=== PATIENT | female | born 1970 | race Caucasian/White ===

== ENCOUNTER 2016-11-19 12:06 | Observation (INO) ==
[2016-11-19] MEDS ORDERED: *HR* Morphine 2 MG/ML SYRINGE IVP ONE (12:14)
[2016-11-19] MEDS ORDERED: Ondansetron 4 MG/2 ML VIAL IVP ONE (12:14)
--- NOTE | 2016-11-19 12:17 | Emergency Department Note ---
Disposition Clinical Impression: Anemia Qualifiers: Iron deficiency anemia type: chronic blood loss Chest pain Qualifiers: Chest pain type: precordial pain Qualified Code(s): R07.2 - Precordial pain Disposition: Admitted As Inpatient Condition: Good Referrals: Pearl Pereira CNP [Primary Care Provider] - Forms: ED Satisfaction Letter Time of Disposition: 16:57 Chest Pain HPI - General Chief Complaint: ED Chest Pain Stated Complaint: Chest Pain Time Seen by Provider: 11/19/16 12:10 Source: patient Mode of arrival: EMS Limitations: no limitations Vital Signs Reviewed: Yes Nursing Notes Reviewed: Yes - History of Present Illness HPI Narrative: 46-year-old female with history of coronary artery disease, stents, woke up around 8:30 AM with substernal sharp chest discomfort radiating into her neck. No nausea or diaphoresis. No shortness of breath. She took 4 nitroglycerin of her own which did not seem to help much. She was given 4 baby aspirin by the life squad. Her pain was a level IX at home, and is a level VII here. She states the pain is similar to her previous cardiac chest pain. Pt complaint: chest pain Onset (ago): hour(s) (3-/) Time: 08:30 Duration: constant Onset: during rest Pain Location: substernal Severity scale (1-10): 7 Quality: sharp Pain Radiation: neck Improves with: nothing Worsens with: nothing Context: other (History of coronary artery disease) Associated symptoms: Denies: dyspnea, fever, cough Treatments prior to arrival chest pain: aspirin, nitroglycerin - Related Data Home Medications Medication Instructions Recorded Confirmed Albuterol Sulfate [Albuterol 2 puff IH Q6H PRN 09/06/16 11/13/16 Inhaler] Atorvastatin [Lipitor] 80 mg PO HS 09/06/16 11/13/16 Buspirone HCl [Buspar] 15 mg PO BID 09/06/16 11/13/16 Cetirizine HCl 10 mg PO DAILY 09/06/16 11/13/16 Clopidogrel [Plavix] 75 mg PO DAILY 09/06/16 11/13/16 FLUoxetine HCl [Prozac] 20 mg PO DAILY 09/06/16 11/13/16 Fluticasone Propionate Nasal 50 mcg NS DAILY 09/06/16 11/13/16 [Flonase] Losartan Potassium [Cozaar] 50 mg PO DAILY 09/06/16 11/13/16 Metoprolol [Lopressor] 25 mg PO DAILY 09/06/16 11/13/16 Albuterol Neb [AccuNeb] 0.63 mg IH Q6H PRN 10/07/16 11/13/16 Fenofibrate Nanocrystallized 145 mg PO DAILY 10/07/16 11/13/16 [Tricor] Nicotine Patch [Nicoderm] 21 mg TD DAILY 10/07/16 11/13/16 Nitroglycerin [Nitrostat] 0.4 mg PO Q5M PRN 10/07/16 11/13/16 Gabapentin [Neurontin] 300 mg PO TID 11/13/16 11/13/16 Isosorbide MONOnitrate [Isosorbide 10 mg PO DAILY 11/13/16 11/13/16 Mononitrate] Mometasone/Formoterol [Dulera 100 13 gm IH DAILY 11/13/16 11/13/16 Mcg/5 Mcg Inhaler] Previous Rx's Medication Instructions Recorded Ergocalciferol (VITAMIN D2) 50,000 unit PO QWEEK #7 capsule 09/12/16 [Vitamin D2] Lidocaine Patch [Lidoderm 5% patch] 1 each TP DAILY #7 patch 09/12/16 Dicyclomine [Bentyl] 20 mg PO QID PRN #30 capsule 11/13/16 Ondansetron ODT [Zofran ODT] 4 mg SL Q6HR PRN #8 tab.rapdis 11/13/16 Allergies Allergy/AdvReac Type Severity Reaction Status Date / Time Penicillins AdvReac Hives Verified 11/13/16 13:01 propoxyphene AdvReac Vomiting Verified 11/13/16 13:01 [From Caio] All systems ED: reviewed and negative except as stated. Constitutional: Denies: fever, chills ENT ED: Denies: ear pain, throat pain Cardiovascular: Reports: chest pain. Denies: palpitations Respiratory: Denies: cough, dyspnea Gastrointestinal: Denies: abdominal pain, nausea, vomiting Genitourinary: Denies: urgency, dysuria, frequency Musculoskeletal: Reports: neck pain. Denies: back pain Integumentary: Denies: rash Chest Pain PMH - Past Medical History Medical history: Reports: COPD, coronary artery disease, GI bleed, hyperlipidemia, hypertension, myocardial infarction Surgical history: Reports: angioplasty/stent, SERGIO/BSO, other Psychiatric history: Reports: anxiety [employer] history: Reports: bilateral tubal ligation - Social History Smoking Status: Current every day smoker Alcohol use: Reports: occasionally Drug use: Reports: none Physical Exam - General Limitations: no limitations General appearance: alert, in no apparent distress - Head Head exam: atraumatic, normocephalic - Eye Eye exam: Present: PERRL, EOMI. Absent: scleral icterus, conjunctival injection - ENT ENT exam: normal oropharynx, mucous membranes moist, TM's normal bilaterally - Neck Neck exam: Present: normal inspection, full ROM, trachea midline. Absent: lymphadenopathy - Respiratory Respiratory exam: Present: normal lung sounds bilaterally. Absent: respiratory distress, wheezes - Cardiovascular Cardiovascular exam: Present: regular rate, normal rhythm, normal heart sounds - Abdominal Exam Abdominal exam: Present: soft, Non-Tender, normal bowel sounds. Absent: organomegaly, mass - Extremities Exam Extremities exam: Present: normal inspection, full ROM, normal capillary refill. Absent: tenderness, pedal edema, calf tenderness - Back Exam Back exam: Present: normal inspection - Neurological Exam Neurological exam: Present: alert, oriented X3. Absent: motor sensory deficit - Psychiatric Psychiatric exam: Present: normal affect, normal mood - Skin Skin exam: Present: warm, dry, intact, normal color. Absent: cyanosis, diaphoresis Course - Reevaluation(s) Reevaluation #1: Complete relief of chest discomfort with GI treatment. Time: 14:00 Reevaluation #2: Case discussed with Dr. Medley. He will accept patient for observation admission to transfuse and monitor. Time: 16:53 Vital Signs Temperature 98.4 F 11/19/16 12:07 Pulse Rate 100 11/19/16 12:07 Respiratory Rate 20 11/19/16 12:07 Blood Pressure 155/77 11/19/16 12:07 O2 Sat by Pulse Oximetry 93 11/19/16 12:07 Temperature 98.3 F 11/19/16 14:24 Pulse Rate 96 11/19/16 16:39 Respiratory Rate 20 11/19/16 16:39 Blood Pressure 167/92 11/19/16 16:39 O2 Sat by Pulse Oximetry 93 11/19/16 15:40 Oxygen Delivery Oxygen Delivery Nasal Cannula Chest Pain - [facility] Narrative Medical decision making narrative: Differential includes but is not limited to GERD, esophageal spasm, chest wall pain, angina, myocardial infarction, pulmonary embolus, aortic dissection Etiology of her chest pain is unclear, it is certainly atypical for cardiac pain , and was almost completely relieved by GI cocktail and Pepcid. She is not actively bleeding, her stool is brown and Hemoccult negative. Her hemoglobin is 7.8, with her cardiac issues she needs to be transfused. I have ordered 2 units of packed cells. I discussed the case with Dr. Medley.We are going to put her in an observation bed here and transfuse her, monitor, and repeat her cardiac enzymes. - Lab Data Lab results reviewed: Yes I reviewed the patient's lab results. Result diagrams: 11/19/16 12:29 11/19/16 12:29 Lab Results 11/19/16 11/19/16 11/19/16 Range/Units 12:29 12:29 12:29 WBC 8.4 (4.3-11.1) K/mcL RBC 2.98 L (3.82-4.97) M/mcL Hgb 7.8 L (11.5-15.4) g/dL Hct 26.7 L (35.3-44.9) % MCV 89.6 (83.0-100.0) fL MCH 26.2 L (28.0-33.3) pg MCHC 29.2 L (31.6-35.5) g/dL RDW 19.9 H (11.5-14.5) % Plt Count 206 (140-400) K/mcL MPV 9.1 L (9.4-12.4) fL Immature Gran % 0.6 (0-4) % Seg Neutrophils % 71.1 % Lymphocytes % 15.9 % Monocytes % 9.7 % Eosinophils % 2.2 % Basophils % 0.5 % Neutrophils # 6.0 (1.6-8.9) K/mcL Lymphocytes # 1.3 (0.6-4.6) K/mcL Monocytes # 0.8 (0.0-1.3) K/mcL Eosinophils # 0.2 (0.0-0.6) K/mcL Basophils # 0.0 (0.0-0.2) K/mcL Nucleated RBCs/100 WBC 1.0 H (0) /100 WBC D-Dimer 1284 H (0-500) ng/mLFEU Sodium 137 (136-145) mEq/L Potassium 4.5 (3.5-4.5) mEq/L Chloride 102 (98-109) mEq/L Carbon Dioxide 24 (19-29) mEq/L BUN 16 (7-20) mg/dL Creatinine 0.85 (0.57-1.11) mg/dL Est GFR ( Amer) > 60 (> 60) Est GFR (Non-Af Amer) > 60 (> 60) BUN/Creatinine Ratio 19 (6-26) Glucose 126 H (70-99) mg/dL Calculated Osmolality 287 (280-300) Calcium 8.8 (8.6-10.8) mg/dL Total Bilirubin 0.4 (0.2-1.2) mg/dL AST 38 H (5-34) Units/L ALT 51 (0-55) Units/L Alkaline Phosphatase 64 (38-126) Units/L Troponin I (0-0.03) ng/mL B-Natriuretic Peptide (0-100) pg/mL Serum Total Protein 7.3 (6.0-8.3) g/dL Albumin 3.2 L (3.5-5.0) g/dL Globulin 4.1 H (2.4-3.5) g/dL Albumin/Globulin Ratio 0.8 L (1.1-2.2) Stool Occult Blood (Negative) Blood Type Antibody Screen Crossmatch 11/19/16 11/19/16 11/19/16 Range/Units 12:29 12:29 14:52 WBC (4.3-11.1) K/mcL RBC (3.82-4.97) M/mcL Hgb (11.5-15.4) g/dL Hct (35.3-44.9) % MCV (83.0-100.0) fL MCH (28.0-33.3) pg MCHC (31.6-35.5) g/dL RDW (11.5-14.5) % Plt Count (140-400) K/mcL MPV (9.4-12.4) fL Immature Gran % (0-4) % Seg Neutrophils % % Lymphocytes % % Monocytes % % Eosinophils % % Basophils % % Neutrophils # (1.6-8.9) K/mcL Lymphocytes # (0.6-4.6) K/mcL Monocytes # (0.0-1.3) K/mcL Eosinophils # (0.0-0.6) K/mcL Basophils # (0.0-0.2) K/mcL Nucleated RBCs/100 WBC (0) /100 WBC D-Dimer (0-500) ng/mLFEU Sodium (136-145) mEq/L Potassium (3.5-4.5) mEq/L Chloride (98-109) mEq/L Carbon Dioxide (19-29) mEq/L BUN (7-20) mg/dL Creatinine (0.57-1.11) mg/dL Est GFR ( Amer) (> 60) Est GFR (Non-Af Amer) (> 60) BUN/Creatinine Ratio (6-26) Glucose (70-99) mg/dL Calculated Osmolality (280-300) Calcium (8.6-10.8) mg/dL Total Bilirubin (0.2-1.2) mg/dL AST (5-34) Units/L ALT (0-55) Units/L Alkaline Phosphatase (38-126) Units/L Troponin I 0.00 0.02 (0-0.03) ng/mL B-Natriuretic Peptide 536 H (0-100) pg/mL Serum Total Protein (6.0-8.3) g/dL Albumin (3.5-5.0) g/dL Globulin (2.4-3.5) g/dL Albumin/Globulin Ratio (1.1-2.2) Stool Occult Blood (Negative) Blood Type Antibody Screen Crossmatch 11/19/16 11/19/16 Range/Units 15:45 15:55 WBC (4.3-11.1) K/mcL RBC (3.82-4.97) M/mcL Hgb (11.5-15.4) g/dL Hct (35.3-44.9) % MCV (83.0-100.0) fL MCH (28.0-33.3) pg MCHC (31.6-35.5) g/dL RDW (11.5-14.5) % Plt Count (140-400) K/mcL MPV (9.4-12.4) fL Immature Gran % (0-4) % Seg Neutrophils % % Lymphocytes % % Monocytes % % Eosinophils % % Basophils % % Neutrophils # (1.6-8.9) K/mcL Lymphocytes # (0.6-4.6) K/mcL Monocytes # (0.0-1.3) K/mcL Eosinophils # (0.0-0.6) K/mcL Basophils # (0.0-0.2) K/mcL Nucleated RBCs/100 WBC (0) /100 WBC D-Dimer (0-500) ng/mLFEU Sodium (136-145) mEq/L Potassium (3.5-4.5) mEq/L Chloride (98-109) mEq/L Carbon Dioxide (19-29) mEq/L BUN (7-20) mg/dL Creatinine (0.57-1.11) mg/dL Est GFR ( Amer) (> 60) Est GFR (Non-Af Amer) (> 60) BUN/Creatinine Ratio (6-26) Glucose (70-99) mg/dL Calculated Osmolality (280-300) Calcium (8.6-10.8) mg/dL Total Bilirubin (0.2-1.2) mg/dL AST (5-34) Units/L ALT (0-55) Units/L Alkaline Phosphatase (38-126) Units/L Troponin I (0-0.03) ng/mL B-Natriuretic Peptide (0-100) pg/mL Serum Total Protein (6.0-8.3) g/dL Albumin (3.5-5.0) g/dL Globulin (2.4-3.5) g/dL Albumin/Globulin Ratio (1.1-2.2) Stool Occult Blood Negative (Negative) Blood Type A POSITIVE Antibody Screen NEGATIVE Crossmatch See Detail - Radiology Data Radiology results reviewed: Yes I reviewed the patient's radiology results. - EKG Data EKG attestation: Yes I reviewed and interpreted this EKG. EKG results narrative: Sinus rhythm, rate of 90, left atrial enlargement, age indeterminate anterior infarct, nonspecific ST-T changes. Rhythm strip shows a sinus rhythm with a rate of 90, NE interval 181 ms, QS 101 ms with no other ectopy as interpreted by me. This is not significantly changed from an EKG dated . EKG #2: Sinus rhythm, rate of 86, nonspecific ST-T changes. Rhythm strip shows sinus rhythm with a rate of 86, NE interval 186 ms, QRS of 96 ms with no other ectopy as interpreted by me. Unchanged from her previous EKG.
[2016-11-19 12:36] LABS: Basophils % 0.5 %; Eosinophils # 0.2 K/mcL (0.0-0.6); Eosinophils % 2.2 %; Hematocrit 26.7 % (35.3-44.9); Hemoglobin 7.8 g/dL (11.5-15.4); Immature Granulocytes % 0.6 % (0-4); Lymphocytes # 1.3 K/mcL (0.6-4.6); Lymphocytes % 15.9 %; Mean Corpuscular HGB Conc 29.2 g/dL (31.6-35.5); Mean Corpuscular Hemoglobin 26.2 pg (28.0-33.3); Mean Corpuscular Volume 89.6 fL (83.0-100.0); Mean Platelet Volume 9.1 fL (9.4-12.4); Monocytes # 0.8 K/mcL (0.0-1.3); Monocytes % 9.7 %; Platelet Count 206 K/mcL (140-400); Red Blood Count 2.98 M/mcL (3.82-4.97); Red Cell Distribution Width 19.9 % (11.5-14.5); Segmented Neutrophils % 71.1 %
[2016-11-19 12:53] LABS: Alanine Aminotransferase 51 Units/L (0-55); Albumin 3.2 g/dL (3.5-5.0); Albumin/Globulin Ratio 0.8 (1.1-2.2); Alkaline Phosphatase 64 Units/L (38-126); Aspartate Amino Transferase 38 Units/L (5-34); BUN/Creatinine Ratio 19 (6-26); Bilirubin,Total 0.4 mg/dL (0.2-1.2); Blood Urea Nitrogen 16 mg/dL (7-20); Calcium 8.8 mg/dL (8.6-10.8); Carbon Dioxide 24 mEq/L (19-29); Chloride 102 mEq/L (98-109); Globulin 4.1 g/dL (2.4-3.5); Glucose 126 mg/dL (70-99); Osmolality,Calculated 287 (280-300); Potassium 4.5 mEq/L (3.5-4.5); Sodium 137 mEq/L (136-145); Total Protein 7.3 g/dL (6.0-8.3); eGFR For African Americans > 60 (> 60); eGFR For Non-African Americans > 60 (> 60)
[2016-11-19] MEDS ORDERED: GI Cocktail 40 ML EACH PO ONE (13:17)
[2016-11-19] MEDS ORDERED: Famotidine 20 MG TABLET PO ONE (13:17)
[2016-11-19] MEDS ORDERED: *HR* OxyCODONE/APAP 5/325 TABLET PO ONE (17:44)
--- NOTE | 2016-11-19 18:13 | Electrocardiograph Report ---
[address] [place], [place] [address] Test Date: 2016-11-19 Pat Name: Anne Cosby Department: [id number] Room: [facility] Gender: F Medical Assistant Prn: Velasquez : 1970 Requested By: Chemo Clay Order Number: [id number] Reading MD: Layla Ortega Measurements Intervals [place] Rate: 90 P: 63 SD: 181 QRS: 5 QRSD: 101 T: 46 QT: 367 QTc: 415 Interpretive Statements SINUS RHYTHM POSSIBLE LEFT ATRIAL ENLARGEMENT POSSIBLE ANTERIOR MYOCARDIAL INFARCTION, OF INDETERMINATE AGE Electronically Signed On 11-19-2016 18:11:45 EDT by Layla Ortega
[2016-11-19] MEDS ORDERED: 0.9 % Sodium Chloride 1,000 ML IVC SCH (18:17)
[2016-11-19] MEDS ORDERED: Naloxone 0.4 MG/ML INJ IVP PRN (18:17)
[2016-11-19] MEDS ORDERED: Ondansetron ODT 4 MG TAB.RAPDIS SL PRN (18:17)
[2016-11-19] MEDS ORDERED: Nitroglycerin 0.4 MG TAB.SUBL SL PRN (18:17)
[2016-11-19] MEDS ORDERED: Albuterol Neb 0.63 MG/3 ML VIAL IH PRN (18:17)
[2016-11-19] MEDS ORDERED: 0.9 % Sodium Chloride 250 ML ONE (18:31)
[2016-11-19] MEDS ORDERED: *HR* Metoprolol 5 MG/5 ML VIAL IVP ONE ×3 (20:01→22:36)
[2016-11-19] MEDS ORDERED: *HR* Morphine 2 MG/ML SYRINGE IVP PRN (20:02)
[2016-11-19] MEDS ORDERED: Gabapentin 300 MG CAPSULE PO SCH (21:00)
[2016-11-19] MEDS ORDERED: tiZANidine 4 MG TABLET PO SCH (21:00)
[2016-11-19] MEDS ORDERED: *HR* HYDROcodone/Acet 5/325 mg TABLET PO PRN (22:02)
[2016-11-19] MEDS ORDERED: *HR* Morphine 2 MG/ML SYRINGE IVP STA (22:25)
[2016-11-19 23:50] VITALS: BP 135/86
--- NOTE | 2016-11-20 00:52 | Internal Med History&Physical ---
Date of Encounter: 11/20/16 Time of Encounter: 11:55 Assessment and Plan (1) Chest pain Current visit: Yes Status: Acute Repeat cardiac enzymes were ordered through emergency room. Qualifiers: Chest pain type: precordial pain Qualified Code(s): R07.2 - Precordial pain (2) Anemia Current visit: Yes Status: Acute She was ordered transfusion of PRBC through the emergency room. Qualifiers: Anemia type: unspecified type Qualified Code(s): D64.9 - Anemia, unspecified (3) HTN (hypertension) Current visit: No Status: Chronic Lopressor and Cozaar will be continued as at home. Qualifiers: Hypertension type: essential hypertension Qualified Code(s): I10 - Essential (primary) hypertension Internal Medicine - H&P: HPI Chief complaint: chest pain Admitted From: Home Plans for Post Hospital Care: Home History of present illness: Ms. Cosby is a 46 year old female who came to emergency room stating she had been awakened at 8:30 AM with discomfort in her chest. She describes it as epigastric discomfort that felt similar to previous pains when she has had myocardial infarctions in 2008 and 2014. She had 3 stents placed after the first ME and another stent placed after the second ME. She states she took 4 nitroglycerin pills at home prior to coming to the hospital with minimal relief. She has not had repeat heart cath since the second ME. She was seen by her [facility] tax economist approximately 7-10 days ago who told her he would consider doing another heart catheter in the near future. She denies heart failure DVT or pulmonary embolus. She has a history of hypertension. Past Med Surg Social Fam HX - Past Medical History Medical history: COPD, coronary artery disease, GI bleed, hyperlipidemia, hypertension, myocardial infarction Psychiatric history: anxiety - Past Surgical History Surgical History: angioplasty/stent, SERGIO/BSO, other - Social History Smoking Status: Current every day smoker Packs per day: .25 Smokeless Tobacco Status: Yes Alcohol use: occasionally Drug use: none - Family History Mother Adopted: Yes Internal Medicine - H&P: Meds Albuterol Sulfate [Albuterol Inhaler] 2 puff IH Q6H PRN 09/06/16 [History] Atorvastatin [Lipitor] 80 mg PO HS 09/06/16 [History] Buspirone HCl [Buspar] 15 mg PO BID 09/06/16 [History] Cetirizine HCl 10 mg PO DAILY 09/06/16 [History] Clopidogrel [Plavix] 75 mg PO DAILY 09/06/16 [History] FLUoxetine HCl [Prozac] 20 mg PO DAILY 09/06/16 [History] Fluticasone Propionate Nasal [Flonase] 50 mcg NS DAILY 09/06/16 [History] Losartan Potassium [Cozaar] 50 mg PO DAILY 09/06/16 [History] Metoprolol [Lopressor] 25 mg PO DAILY 09/06/16 [History] Ergocalciferol (VITAMIN D2) [Vitamin D2] 50,000 unit PO QWEEK #7 capsule [Rx] Lidocaine Patch [Lidoderm 5% patch] 1 each TP DAILY #7 patch 09/12/16 [Rx] Albuterol Neb [AccuNeb] 0.63 mg IH Q6H PRN 10/07/16 [History] Fenofibrate Nanocrystallized [Tricor] 145 mg PO DAILY 10/07/16 [History] Nitroglycerin [Nitrostat] 0.4 mg PO Q5M PRN 10/07/16 [History] Dicyclomine [Bentyl] 20 mg PO QID PRN #30 capsule 11/13/16 [Rx] Gabapentin [Neurontin] 300 mg PO TID 11/13/16 [History] Isosorbide MONOnitrate [Isosorbide Mononitrate] 10 mg PO DAILY 11/13/16 [History ] Mometasone/Formoterol [Dulera 100 Mcg/5 Mcg Inhaler] 13 gm IH DAILY 11/13/16 [ History] Ondansetron ODT [Zofran ODT] 4 mg SL Q6HR PRN #8 tab.rapdis 11/13/16 [Rx] Tizanidine HCl [Zanaflex] 2 mg PO TID 11/19/16 [History] 3 Allergy/AdvReac Type Severity Reaction Status Date / Time Penicillins AdvReac Hives Verified 11/13/16 13:01 propoxyphene AdvReac Vomiting Verified 11/13/16 13:01 [From Caio] All Systems PM: A 10-system review of systems was performed and is negative for pertinent findings except as documented above in the HPI. Review of systems: Gen.: She states her weight has increased approximately 21 pounds in the past few months. She attributes this to decrease in smoking. Cardiovascular: As per history of present illness. Respiratory: She has smoked since age 14 up to 2 packs per day. She has a diagnosis of COPD but does not wear home oxygen. GI: She had GI bleed earlier this year and had EGD and colonoscopy at [facility]. She was told she had 13 sites of bleeding. She states some intervention was done but she is uncertain of details. She was told she might have Crohn's disease or ulcerative colitis. : She denies hematuria dysuria or kidney stones Neurologic: She denies large distribution strokes or seizures Endocrine: She has hyperlipidemia but denies diabetes or thyroid disease Hematology/oncology: She has anemia but denies internal malignancies or other blood disorders Psychiatric: She has anxiety and depression Musk skeletal: She has arthritis but denies gout or other bone joint or muscle disorders. - Constitutional Vitals: Temp Pulse Resp BP Pulse Ox 98.1 F 68 16 135/86 92 11/19/16 23:46 11/19/16 23:46 11/19/16 23:46 11/19/16 23:46 11/19/16 23:46 Exam: Gen.: She is a well-developed well-nourished female lying in bed who appears in mild discomfort. HEENT: Head is atraumatic and normocephalic. Eyes: EOMI. There is no scleral icterus. Mouth: Mucosa is moist. Neck: Supple and nontender. There is no thyromegaly or adenopathy noted. Heart: Regular without murmurs gallops or ectopics. Lungs: No wheezes or crackles are heard. Abdomen: Soft and nontender. No masses or guarding noted. Chest: She has mild tenderness in epigastric and costosternal area but states "that is not the pain" on deep palpation. Extremities: There is no cyanosis edema or clubbing noted. Dorsalis pedis posttibial pulses are 1-2 over 2 bilaterally. Neurologic: Mental status: She is talkative and a good historian. Cranial nerves: Smile is symmetric. Forehead wrinkles bilaterally. Tongue protrudes midline. EOMI. Motor: There is no pronator drift. Cerebellar: Finger to nose is intact bilaterally. Skin: Warm and dry Internal Med - H&P Results - Labs CBC & Chem 7: 11/19/16 12:29 11/19/16 12:29 Labs: Cardiac Enzymes 11/19/16 Range/Units 21:35 Troponin I 0.09 H* (0-0.03) ng/mL
--- NOTE | 2016-11-20 01:06 | Discharge Summary ---
Date of Encounter: 11/20/16 Time of Encounter: 11:55 - Discharge Diagnosis (1) Chest pain Priority: Primary Status: Acute Qualifiers: Chest pain type: precordial pain Qualified Code(s): R07.2 - Precordial pain (2) Anemia Priority: Secondary Status: Acute Qualifiers: Anemia type: unspecified type Qualified Code(s): D64.9 - Anemia, unspecified (3) HTN (hypertension) Priority: Secondary Status: Chronic Qualifiers: Hypertension type: essential hypertension Qualified Code(s): I10 - Essential (primary) hypertension - Discharge Medications Home Medications: Albuterol Sulfate [Albuterol Inhaler] 2 puff IH Q6H PRN 09/06/16 [History] Atorvastatin [Lipitor] 80 mg PO HS 09/06/16 [History] Buspirone HCl [Buspar] 15 mg PO BID 09/06/16 [History] Cetirizine HCl 10 mg PO DAILY 09/06/16 [History] Clopidogrel [Plavix] 75 mg PO DAILY 09/06/16 [History] FLUoxetine HCl [Prozac] 20 mg PO DAILY 09/06/16 [History] Fluticasone Propionate Nasal [Flonase] 50 mcg NS DAILY 09/06/16 [History] Losartan Potassium [Cozaar] 50 mg PO DAILY 09/06/16 [History] Metoprolol [Lopressor] 25 mg PO DAILY 09/06/16 [History] Ergocalciferol (VITAMIN D2) [Vitamin D2] 50,000 unit PO QWEEK #7 capsule [Rx] Lidocaine Patch [Lidoderm 5% patch] 1 each TP DAILY #7 patch 09/12/16 [Rx] Albuterol Neb [AccuNeb] 0.63 mg IH Q6H PRN 10/07/16 [History] Fenofibrate Nanocrystallized [Tricor] 145 mg PO DAILY 10/07/16 [History] Nitroglycerin [Nitrostat] 0.4 mg PO Q5M PRN 10/07/16 [History] Dicyclomine [Bentyl] 20 mg PO QID PRN #30 capsule 11/13/16 [Rx] Gabapentin [Neurontin] 300 mg PO TID 11/13/16 [History] Isosorbide MONOnitrate [Isosorbide Mononitrate] 10 mg PO DAILY 11/13/16 [History ] Mometasone/Formoterol [Dulera 100 Mcg/5 Mcg Inhaler] 13 gm IH DAILY 11/13/16 [ History] Ondansetron ODT [Zofran ODT] 4 mg SL Q6HR PRN #8 tab.rapdis 11/13/16 [Rx] Tizanidine HCl [Zanaflex] 2 mg PO TID 11/19/16 [History] Allergies/Adverse Reactions: 3 Allergy/AdvReac Type Severity Reaction Status Date / Time Penicillins AdvReac Hives Verified 11/13/16 13:01 propoxyphene AdvReac Vomiting Verified 11/13/16 13:01 [From Darvocet-N] Procedures/tests Complete & Pending: Procedures Performed prior 72 hours Category Date Time Status ECG 12 lead ECG [ECG] Stat Y 11/19/16 22:23 Ordered Date of admission: 11/19/16 17:40 Primary care physician: Pearl Pereira - Patient Status Disposition: Transfer Other Condition: Good - Discharge Instructions Hospital course: Ms. Cosby is a 46 year old female who came to emergency room stating she had been awakened at 8:30 AM with discomfort in her chest. She describes it as epigastric discomfort that felt similar to previous pains when she has had myocardial infarctions in 2008 and 2014. She had 3 stents placed after the first [place] and another stent placed after the second [place]. She states she took 4 nitroglycerin pills at home prior to coming to the hospital with minimal relief. Initial troponin level in emergency room was 0.00 with repeat check 2 hours later showing a slight rise to 0.02. Initial orders were written by the emergency room physician. An additional troponin done approximately 6 hours later showed a rise to 0.09. She complained of ongoing chest pain. Repeat EKG showed no obvious infarct. She was given IV beta xuan, morphine, and sublingual nitroglycerin with slight improvement in the pain. CTA was done in emergency room because of elevated d-dimer and showed no evidence of pulmonary embolism. I told her I was not certain that the chest pain was of myocardial ischemic origin but in view of her past cardiac history I felt it was reasonable for her to be transferred for cardiology evaluation and further testing with possible intervention. No beds available were available at [facility] or [facility]. I contacted [facility] and she was accepted in transfer to [facility] emergency room for further disposition. - Time Spent with Patient Total time spent providing and/or coordinating discharge services: - Constitutional Vitals: Temp Pulse Resp BP Pulse Ox 98.1 F 68 16 135/86 92 11/19/16 23:46 11/19/16 23:46 11/19/16 23:46 11/19/16 23:46 11/19/16 23:46
[2016-11-20] MEDS ORDERED: Fluticasone Propionate Nasal 50 MCG/SPRAY BOTTLE NS SCH (09:00)
[2016-11-20] MEDS ORDERED: Budesonide/Formoterol 80/4.5 MDI IH SCH (09:00)
[2016-11-20] MEDS ORDERED: ISOSORBIDE MONONITRATE 10 MG PO SCH (09:00)
[2016-11-20] MEDS ORDERED: Loratadine 10 MG TABLET PO SCH (09:00)
[2016-11-20] MEDS ORDERED: Fenofibrate 54 MG TABLET PO SCH (09:00)
[2016-11-20] MEDS ORDERED: FLUoxetine 20 MG CAPSULE PO SCH (09:00)
--- NOTE | 2016-11-20 10:03 | Electrocardiograph Report ---
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
--- NOTE | 2016-11-21 08:09 | Electrocardiograph Report ---
[address] [address] Test Date: 2016-11-19 Pat Name: Anne Cosby Department: [id number] Room: [facility] Gender: F Manager Club: Queta : 1970 Requested By: Darrin Medley Order Number: [id number] Reading MD: Ricki Madison MD Measurements Intervals [place] Rate: 76 P: 60 IA: 191 QRS: 11 QRSD: 97 T: 22 QT: 384 QTc: 414 Interpretive Statements SINUS RHYTHM LEFT ATRIAL ENLARGEMENT Electronically Signed On 11-21-2016 6:32:47 EDT by Ricki Madison MD
== END 2016-11-20 02:22 | disposition other institution (70) ==
LOC: INPPIK 12:06 → EMEROOPIK 12:06 → INPPIK 18:00
PROVIDERS: ADMIT Internal Medicine; ATTEND Internal Medicine

== ENCOUNTER 2017-03-24 09:19 | Observation (INO) ==
[2017-03-24] MEDS ORDERED: Aspirin 81 MG TAB.CHEW PO ONE (09:31)
[2017-03-24] MEDS ORDERED: Ondansetron 4 MG/2 ML VIAL IVP ONE (09:31)
[2017-03-24] MEDS ORDERED: Pantoprazole 40 MG VIAL IVP ONE (09:31)
[2017-03-24] MEDS ORDERED: Nitroglycerin 1 INCH/GM PACKET TP ONE (09:31)
[2017-03-24] MEDS ORDERED: cloNIDine HCl 0.1 MG TABLET PO ONE (09:32)
--- NOTE | 2017-03-24 09:33 | Emergency Department Note ---
Disposition Clinical Impression: Chest pain Qualifiers: Chest pain type: precordial pain Qualified Code(s): R07.2 - Precordial pain Hypertension Qualifiers: Hypertension type: essential hypertension Qualified Code(s): I10 - Essential ( primary) hypertension Disposition: Admitted As Inpatient Condition: Fair Chest Pain HPI - General Chief Complaint: ED Chest Pain Stated Complaint: chest pain /SOB Time Seen by Provider: 03/24/17 09:25 Source: patient Mode of arrival: private vehicle Limitations: no limitations Vital Signs Reviewed: Yes Nursing Notes Reviewed: Yes - History of Present Illness HPI Narrative: Patient relates that she started yesterday with some swelling of her legs. She states she took an [id number] diuretic because a nurse friend of hers told her she had "pitting edema". She states that the edema has completely gone away but she did awaken in the middle the night to go to the bathroom and noted that she was more short of breath. This morning she woke at 7:30 with left-sided chest pain described as a "pressure and pain" associated with diaphoresis, nausea and still with some shortness of breath. She states the pain did radiate towards the left neck, left arm and left scapular region. She initially denied that it was exertional but she does state that she gets more short of breath and symptoms if she is walking around her 4 bedroom house for bed. She denies abdominal pain but did state she had a black appearing stool at 7:30 AM as well. She has reported history of a previous GI bleed in November. She denies use of gastric irritants such as alcohol or nonsteroidals. She has reports that she gets a bit dizzy if she is up and walking around for a while. She has a history of previous coronary artery disease, CT and stent. She also has history of hypertension and states she took her normal medicines today. Pt complaint: chest pain Onset (ago): hour(s) Duration: gradually worsening Onset: during rest Pain Location: substernal, left chest Severity: moderate Quality: aching, heaviness Pain Radiation: LUE, neck Improves with: rest Worsens with: exertion Associated symptoms: Reports: nausea, diaphoresis, dyspnea, leg swelling. Denies: vomiting, syncope, palpitations, fever, cough - Related Data Home Medications Medication Instructions Recorded Confirmed Albuterol Sulfate [Albuterol 2 puff IH Q6H PRN 09/06/16 03/24/17 Inhaler] Atorvastatin [Lipitor] 80 mg PO HS 09/06/16 03/24/17 Buspirone HCl [Buspar] 15 mg PO BID 09/06/16 03/24/17 Cetirizine HCl 10 mg PO DAILY 09/06/16 03/24/17 Clopidogrel [Plavix] 75 mg PO DAILY 09/06/16 03/24/17 FLUoxetine HCl [Prozac] 20 mg PO DAILY 09/06/16 03/24/17 Fluticasone Propionate Nasal 50 mcg NS DAILY 09/06/16 03/24/17 [Flonase] Losartan Potassium [Cozaar] 50 mg PO DAILY 09/06/16 03/24/17 Metoprolol [Lopressor] 25 mg PO DAILY 09/06/16 03/24/17 Albuterol Neb [AccuNeb] 0.63 mg IH Q6H PRN 10/07/16 03/24/17 Fenofibrate Nanocrystallized 145 mg PO DAILY 10/07/16 03/24/17 [Tricor] Nitroglycerin [Nitrostat] 0.4 mg PO Q5M PRN 10/07/16 03/24/17 Gabapentin [Neurontin] 600 mg PO TID 11/13/16 03/24/17 Isosorbide MONOnitrate [Isosorbide 10 mg PO DAILY 11/13/16 03/24/17 Mononitrate] Mometasone/Formoterol [Dulera 100 13 gm IH DAILY 11/13/16 03/24/17 Mcg/5 Mcg Inhaler] Aspirin [Lo-Dose Aspirin EC] 81 mg PO DAILY 02/20/17 03/24/17 Methocarbamol [Robaxin-750] 750 mg PO DAILY 02/20/17 03/24/17 Previous Rx's Medication Instructions Recorded Ergocalciferol (VITAMIN D2) 50,000 unit PO QWEEK #7 capsule 09/12/16 [Vitamin D2] Dicyclomine [Bentyl] 20 mg PO QID PRN #30 capsule 11/13/16 Lidocaine Patch [Lidoderm 5% patch] 1 each TP DAILY PRN #3 adh..patch 01/01/17 HYDROcodone/Acet 5/325 mg [[place] 1 tab PO Q6H PRN #16 tab 02/24/17 5-325 mg] Allergies Allergy/AdvReac Type Severity Reaction Status Date / Time Penicillins AdvReac Hives Verified 01/01/17 14:50 propoxyphene AdvReac Vomiting Verified 01/01/17 14:50 [From Darvocet-N] All systems ED: reviewed and negative except as stated. Chest Pain PMH - Past Medical History Medical history: Reports: coronary artery disease, GI bleed, hyperlipidemia, hypertension, myocardial infarction Surgical history: Reports: angioplasty/stent, SERGIO/BSO, other Psychiatric history: Reports: anxiety [employer] history: Reports: bilateral tubal ligation - Social History Smoking Status: Current every day smoker Alcohol use: Reports: occasionally Drug use: Reports: none Physical Exam - General Limitations: no limitations General appearance: alert, anxious - Head Head exam: atraumatic, normocephalic, normal inspection - Eye Eye exam: Present: normal appearance, PERRL, EOMI. Absent: conjunctival injection - ENT ENT exam: normal exam, normal oropharynx, mucous membranes moist - Neck Neck exam: Present: normal inspection, full ROM, trachea midline. Absent: tenderness - Chest Chest inspection: Present: normal inspection, symmetric chest wall rise - Respiratory Respiratory exam: Present: normal lung sounds bilaterally. Absent: respiratory distress, wheezes, prolonged expiratory phase - Cardiovascular Cardiovascular exam: Present: regular rate, normal rhythm, normal heart sounds. Absent: systolic murmur, JVD - Abdominal Exam Abdominal exam: Present: soft, Non-Tender, normal bowel sounds. Absent: tenderness, distention, guarding, rebound, rigidity, pulsatile mass - Extremities Exam Extremities exam: Present: normal inspection, full ROM, normal capillary refill , other (No current lower extremity edema.). Absent: tenderness, pedal edema, calf tenderness - Expanded Lower Extremity Exam Neurovascular/Tendon exam: Present: normal capillary refill. Absent: motor deficit, sensory deficit, tendon deficit Gait: observed and normal - Neurological Exam Neurological exam: Present: alert, oriented X3, normal gait. Absent: motor sensory deficit - Psychiatric Psychiatric exam: Present: normal affect, anxious - Skin Skin exam: Present: warm, dry, intact, normal color. Absent: diaphoresis, pallor Course Course Narrative: 1020: Patient's lab and imaging has been reviewed. Given the elevation of d- dimer and CT PE study has been ordered. Given the patient's report of black stool, prior GI bleed and possible need for anticoagulation, a Hemoccult will be performed. 1055: Care has been discussed with Dr. Medley. He is agreeable with observation of the patient this facility to continue to observe with regard to her hypertension and chest pain. Verbal orders have been obtained. Vital Signs Temperature 98.6 F 03/24/17 09:25 Pulse Rate 104 03/24/17 09:25 Respiratory Rate 20 03/24/17 09:25 Blood Pressure 201/148 03/24/17 09:25 O2 Sat by Pulse Oximetry 93 03/24/17 09:25 Temperature 98.6 F 03/24/17 09:25 Pulse Rate 104 03/24/17 10:42 Respiratory Rate 19 03/24/17 10:42 Blood Pressure 172/94 03/24/17 10:42 O2 Sat by Pulse Oximetry 93 03/24/17 10:42 Oxygen Delivery Oxygen Delivery Nasal Cannula Chest Pain - Differential Diagnosis Likely: unstable angina pectoris, atypical chest pain, costalchondritis, chest pain - Medical Records Medical records reviewed: Yes I reviewed the patient's medical records. - Lab Data Lab results reviewed: Yes I reviewed the patient's lab results. Result diagrams: 03/24/17 09:40 03/24/17 09:40 Lab Results 03/24/17 03/24/17 03/24/17 Range/Units 09:40 09:40 09:40 WBC 7.6 (4.3-11.1) K/mcL RBC 4.41 (3.82-4.97) M/mcL Hgb 11.5 (11.5-15.4) g/dL Hct 38.6 (35.3-44.9) % MCV 87.5 (83.0-100.0) fL MCH 26.1 L (28.0-33.3) pg MCHC 29.8 L (31.6-35.5) g/dL RDW 17.4 H (11.5-14.5) % Plt Count 163 (140-400) K/mcL MPV 9.1 L (9.4-12.4) fL Immature Gran % 0.8 (0-4) % Seg Neutrophils % 64.6 % Lymphocytes % 22.3 % Monocytes % 9.9 % Eosinophils % 1.1 % Basophils % 1.3 % Neutrophils # 4.9 (1.6-8.9) K/mcL Lymphocytes # 1.7 (0.6-4.6) K/mcL Monocytes # 0.8 (0.0-1.3) K/mcL Eosinophils # 0.1 (0.0-0.6) K/mcL Basophils # 0.1 (0.0-0.2) K/mcL Nucleated RBCs/100 WBC 0.7 H (0) /100 WBC PT 12.7 H (9.4-12.1) Seconds INR 1.2 APTT 30.6 (26.0-36.0) Seconds D-Dimer 1628 H (0-500) ng/mLFEU Sodium (136-145) mEq/L Potassium (3.5-5.1) mEq/L Chloride (98-107) mEq/L Carbon Dioxide (23-29) mEq/L BUN (6-20) mg/dL Creatinine (0.60-1.20) mg/dL Est GFR ( Amer) (> 60) Est GFR (Non-Af Amer) (> 60) BUN/Creatinine Ratio (6-26) Glucose (70-105) mg/dL Calculated Osmolality (280-300) Calcium (8.6-10.3) mg/dL Troponin I (< 0.04) ng/mL B-Natriuretic Peptide 221 H (Less than 100) pg/mL Stool Occult Blood (Negative) 03/24/17 03/24/17 03/24/17 Range/Units 09:40 09:40 11:10 WBC (4.3-11.1) K/mcL RBC (3.82-4.97) M/mcL Hgb (11.5-15.4) g/dL Hct (35.3-44.9) % MCV (83.0-100.0) fL MCH (28.0-33.3) pg MCHC (31.6-35.5) g/dL RDW (11.5-14.5) % Plt Count (140-400) K/mcL MPV (9.4-12.4) fL Immature Gran % (0-4) % Seg Neutrophils % % Lymphocytes % % Monocytes % % Eosinophils % % Basophils % % Neutrophils # (1.6-8.9) K/mcL Lymphocytes # (0.6-4.6) K/mcL Monocytes # (0.0-1.3) K/mcL Eosinophils # (0.0-0.6) K/mcL Basophils # (0.0-0.2) K/mcL Nucleated RBCs/100 WBC (0) /100 WBC PT (9.4-12.1) Seconds INR APTT (26.0-36.0) Seconds D-Dimer (0-500) ng/mLFEU Sodium 137 (136-145) mEq/L Potassium 3.9 (3.5-5.1) mEq/L Chloride 98 (98-107) mEq/L Carbon Dioxide 27 (23-29) mEq/L BUN 9 (6-20) mg/dL Creatinine 0.56 L (0.60-1.20) mg/dL Est GFR ( Amer) > 60 (> 60) Est GFR (Non-Af Amer) > 60 (> 60) BUN/Creatinine Ratio 16 (6-26) Glucose 130 H (70-105) mg/dL Calculated Osmolality 284 (280-300) Calcium 9.1 (8.6-10.3) mg/dL Troponin I < 0.03 (< 0.04) ng/mL B-Natriuretic Peptide (Less than 100) pg/mL Stool Occult Blood Negative (Negative) - Radiology Data Radiology results reviewed: Yes I reviewed the patient's radiology results. Single view chest x-ray is performed. This does not demonstrate evidence for infiltrate, effusion, pneumothorax, foreign body or heart failure. The cardiac silhouette is normal. I do not see abnormality to the osseous structures of the chest. This is on my interpretation. Impressions Chest X-Ray 03/24/17 09:31 IMPRESSION: Bibasilar atelectasis/ scarring. No focal airspace consolidation, pleural effusion or pneumothorax. D/ / Eliecer Dailey MD / Eliecer Dailey MD Interpreting Provider: Eliecer Dailey MD PE study is performed. This does not demonstrate evidence for central PE or other acute pulmonary abnormality. This is on my interpretation. Impressions Chest X-Ray 03/24/17 09:31 IMPRESSION: Bibasilar atelectasis/ scarring. No focal airspace consolidation, pleural effusion or pneumothorax. D/ / Eliecer Dailey MD / Eliecer Dailey MD Interpreting Provider: Eliecer Dailey MD Chest CTA 03/24/17 10:21 IMPRESSION: 1. No evidence of pulmonary embolism or acute pulmonary abnormality. 2. Cardiomegaly without overt failure. D/ / Mike Moser MD / Mike Moser MD Interpreting Provider: Mike Moser MD - EKG Data EKG attestation: Yes I reviewed and interpreted this EKG. EKG shows normal: sinus rhythm, axis, intervals, QRS complexes, ST-T waves Rate: tachycardia (100) P waves: LAE Interpretation: no acute changes, unchanged when compared to prior tracing (date ) (02/20/2017) Heart Score - Score History: Highly Suspicious EKG: Non Specific repolarisation Disturbance Age: 45-65 Risk Factors: Equal/Greater than 3 risk factor or history of atherosclerotic disease Troponin: Less than normal limit HEART Score Total: 6
[2017-03-24 09:54] LABS: Basophils # 0.1 K/mcL (0.0-0.2); Basophils % 1.3 %; Eosinophils # 0.1 K/mcL (0.0-0.6); Eosinophils % 1.1 %; Hematocrit 38.6 % (35.3-44.9); Hemoglobin 11.5 g/dL (11.5-15.4); Immature Granulocytes % 0.8 % (0-4); Lymphocytes # 1.7 K/mcL (0.6-4.6); Lymphocytes % 22.3 %; Mean Corpuscular HGB Conc 29.8 g/dL (31.6-35.5); Mean Corpuscular Hemoglobin 26.1 pg (28.0-33.3); Mean Corpuscular Volume 87.5 fL (83.0-100.0); Mean Platelet Volume 9.1 fL (9.4-12.4); Monocytes # 0.8 K/mcL (0.0-1.3); Monocytes % 9.9 %; Neutrophils # 4.9 K/mcL (1.6-8.9); Nucleated Red Blood Cells 0.7 /100 WBC (0); Platelet Count 163 K/mcL (140-400); Red Blood Count 4.41 M/mcL (3.82-4.97); Red Cell Distribution Width 17.4 % (11.5-14.5); Segmented Neutrophils % 64.6 %
[2017-03-24 10:02] LABS: INR 1.2; Prothrombin Time 12.7 Seconds (9.4-12.1)
[2017-03-24 10:04] LABS: BUN/Creatinine Ratio 16 (6-26); Blood Urea Nitrogen 9 mg/dL (6-20); Calcium 9.1 mg/dL (8.6-10.3); Carbon Dioxide 27 mEq/L (23-29); Chloride 98 mEq/L (98-107); Glucose 130 mg/dL (70-105); Osmolality,Calculated 284 (280-300); Potassium 3.9 mEq/L (3.5-5.1); Sodium 137 mEq/L (136-145); eGFR For African Americans > 60 (> 60); eGFR For Non-African Americans > 60 (> 60)
[2017-03-24 10:05] LABS: Activated Partial Thrombo Time 30.6 Seconds (26.0-36.0)
[2017-03-24] MEDS ORDERED: MOM Conc 10 ML UD.LIQ PO PRN (11:53)
[2017-03-24] MEDS ORDERED: Acetaminophen 325 MG TABLET PO PRN (11:53)
[2017-03-24] MEDS ORDERED: Ondansetron 4 MG/2 ML VIAL IVP PRN (11:53)
[2017-03-24] MEDS ORDERED: Naloxone 0.4 MG/ML INJ IVP PRN (11:53)
[2017-03-24] MEDS ORDERED: 0.9 % Sodium Chloride 1,000 ML IVC SCH (11:53)
[2017-03-24] MEDS ORDERED: Nitroglycerin 1 INCH/GM PACKET TP SCH (12:00)
[2017-03-24] MEDS ORDERED: Acetaminophen 325 MG TABLET PO ONE (12:29)
[2017-03-24] MEDS: Gabapentin 300 MG CAPSULE PO SCH ×2 (14:51→20:56)
[2017-03-24] MEDS ORDERED: Albuterol 2.5 MG/3 ML NEBULIZER IH PRN (16:00)
[2017-03-24] MEDS ORDERED: Ibuprofen 400 MG TABLET PO ONE (19:00)
--- NOTE | 2017-03-24 19:07 | Internal Med History&Physical ---
Date of Encounter: 03/24/17 Time of Encounter: 18:30 Assessment and Plan (1) Chest pain Current visit: Yes Status: Acute Repeat cardiac enzymes have been ordered through emergency room. Continue Plavix and aspirin. Will increase isosorbide and change to Toprol-XL. Qualifiers: Chest pain type: precordial pain Qualified Code(s): R07.2 - Precordial pain (2) SOB (shortness of breath) Current visit: No Status: Acute Etiology uncertain. Will treat for cardiac issues. Chest CTA did not show infiltrate or other acute pathology. She has COPD/emphysema history. (3) HTN (hypertension) Current visit: Yes Status: Chronic Continue Cozaar. We will change from metoprolol to Toprol-XL. Qualifiers: Hypertension type: essential hypertension Qualified Code(s): I10 - Essential (primary) hypertension Internal Medicine - H&P: HPI Chief complaint: Chest pain and dyspnea Admitted From: Emergency Dept Plans for Post Hospital Care: Home History of present illness: Ms. Cosby is a 46 year old female who came to emergency room stating she had onset of chest pressure and dyspnea earlier today. She describes the chest discomfort as one she has had numerous times since November 2016 when she was last hospitalized at [facility]. She states it seemed to radiate from her chest up into her head. She took 2 nitroglycerin pills at home with incomplete relief. She called the squad and was brought to emergency room. Chest CTA was done to further evaluate elevated d-dimer. There was no pulmonary embolism seen and she was admitted to [facility] floor for ongoing care needs. She states she still having some left chest discomfort at the present time. Her cardiovascular history is pertinent for hypertension with widely fluctuating blood pressures on home checks. She has known ASHD status post MIs in 2008 and 2014. She had 3 stents placed after the first ME and another stent placed after the second ME. She has not had a repeat heart catheter since second ME. Denies DVT pulmonary embolus or heart failure. Echocardiogram 09/06 showed LVEF of 55%. There was mild tricuspid and pulmonic regurgitation seen. There was reported LAE at 4.70 cm. The E/A ratio was 1.4. Past Med Surg Social Fam HX - Past Medical History Medical history: coronary artery disease, GI bleed, hyperlipidemia, hypertension , myocardial infarction Psychiatric history: anxiety - Past Surgical History Surgical History: angioplasty/stent, SERGIO/BSO, other - Social History Smoking Status: Current every day smoker Smokeless Tobacco Status: No Alcohol use: occasionally Drug use: none - Family History Mother Adopted: Yes Internal Medicine - H&P: Meds Albuterol Sulfate [Albuterol Inhaler] 2 puff IH Q6H PRN 09/06/16 [History] Atorvastatin [Lipitor] 80 mg PO HS 09/06/16 [History] Buspirone HCl [Buspar] 15 mg PO BID 09/06/16 [History] Cetirizine HCl 10 mg PO DAILY 09/06/16 [History] Clopidogrel [Plavix] 75 mg PO DAILY 09/06/16 [History] FLUoxetine HCl [Prozac] 20 mg PO DAILY 09/06/16 [History] Fluticasone Propionate Nasal [Flonase] 50 mcg NS DAILY 09/06/16 [History] Losartan Potassium [Cozaar] 50 mg PO DAILY 09/06/16 [History] Metoprolol [Lopressor] 25 mg PO DAILY 09/06/16 [History] Ergocalciferol (VITAMIN D2) [Vitamin D2] 50,000 unit PO QWEEK #7 capsule [Rx] Albuterol Neb [AccuNeb] 0.63 mg IH Q6H PRN 10/07/16 [History] Fenofibrate Nanocrystallized [Tricor] 145 mg PO DAILY 10/07/16 [History] Nitroglycerin [Nitrostat] 0.4 mg PO Q5M PRN 10/07/16 [History] Dicyclomine [Bentyl] 20 mg PO QID PRN #30 capsule 11/13/16 [Rx] Gabapentin [Neurontin] 600 mg PO TID 11/13/16 [History] Isosorbide MONOnitrate [Isosorbide Mononitrate] 10 mg PO DAILY 11/13/16 [History ] Mometasone/Formoterol [Dulera 100 Mcg/5 Mcg Inhaler] 13 gm IH DAILY 11/13/16 [ History] Lidocaine Patch [Lidoderm 5% patch] 1 each TP DAILY PRN #3 adh..patch 01/01/17 [ Rx] Aspirin [Lo-Dose Aspirin EC] 81 mg PO DAILY 02/20/17 [History] Methocarbamol [Robaxin-750] 750 mg PO DAILY 02/20/17 [History] HYDROcodone/Acet 5/325 mg [[place] 5-325 mg] 1 tab PO Q6H PRN #16 tab 02/24/17 [Rx ] 3 Allergy/AdvReac Type Severity Reaction Status Date / Time Penicillins AdvReac Hives Verified 01/01/17 14:50 propoxyphene AdvReac Vomiting Verified 01/01/17 14:50 [From [place]-N] All Systems PM: A 10-system review of systems was performed and is negative for pertinent findings except as documented above in the HPI. Review of systems: Review of systems from her November 2016 [facility] hospitalization were reviewed and revised as below Gen.: Her weight has decreased from 93.128 kg on 11/19/2016 to 88.451 kg on admission now. Cardiovascular: As per history of present illness. Respiratory: She has smoked since age 14 up to 2 packs per day. She has a diagnosis of COPD but does not wear home oxygen. GI: She had GI bleed 2016 and had EGD and colonoscopy at [facility]. She was told she had 13 sites of bleeding. She states some intervention was done but she is uncertain of details. She was told she might have Crohn's disease or ulcerative colitis. She reports she had repeat EGD and colonoscopy at [facility] November 2016 when transferred from [facility]. She reports no heart catheter was done but the repeat endoscopy showed 13-14 sites of bleeding. She denies disorders of her liver or exocrine pancreas. Stool was Hemoccult negative in emergency room. : She denies hematuria dysuria or kidney stones Neurologic: She denies large distribution strokes or seizures Endocrine: She has hyperlipidemia but denies diabetes or thyroid disease Hematology/oncology: She has history of anemia but denies internal malignancies or other blood disorders Psychiatric: She has anxiety and depression [place] skeletal: She has arthritis but denies gout or other bone joint or muscle disorders. - Constitutional Vitals: Temp Pulse Resp BP Pulse Ox 98.2 F 101 20 140/76 90 03/24/17 18:35 03/24/17 18:35 03/24/17 18:35 03/24/17 18:35 03/24/17 18:35 Exam: Gen.: She is a well-developed well-nourished female lying in bed who appears in no severe distress at present time HEENT: Head is atraumatic and normocephalic. Eyes: EOMI. There is no scleral icterus. Mouth: Mucosa is moist. Neck: Supple and nontender. There is no thyromegaly or adenopathy noted. Heart: Regular without murmurs gallops or ectopics Chest: She is tender in her left costosternal joints to chest compression but states the pain is slightly different from what she experienced at home Abdomen: There is minimal tenderness in the right lower abdominal area to palpation. No masses or guarding are noted. Extremities: There is no cyanosis edema or clubbing noted. Dorsalis pedis and posttibial pulses are 1-2 over 2 bilaterally. Neurologic: Mental status: She is talkative and a good historian. Cranial nerves: Smile is symmetric. Forehead wrinkles bilaterally. Tongue protrudes midline. EOMI. Motor: There is no pronator drift. Cerebellar: Finger to nose is intact bilaterally. Skin: Warm and dry Internal Med - H&P Results - Labs CBC & Chem 7: 03/24/17 09:40 03/24/17 09:40 Labs: Cardiac Enzymes 03/24/17 03/24/17 Range/Units 12:32 18:28 Troponin I < 0.03 < 0.03 (< 0.04) ng/mL
[2017-03-24] MEDS: *HR* HYDROcodone/Acet 5/325 mg TABLET PO PRN (20:56)
[2017-03-24] MEDS: Metoprolol XL (24 HR) Succ 50 MG TAB.ER.24H PO SCH (20:57)
[2017-03-24] MEDS: Isosorbide MONOnitrate (24 HR) 60 MG TAB.ER.24H PO SCH (20:57)
[2017-03-25] MEDS: Acetaminophen 325 MG TABLET PO SCH ×3 (04:25→04:40)
[2017-03-25] MEDS: *HR* HYDROcodone/Acet 5/325 mg TABLET PO PRN (04:40)
[2017-03-25 06:48] VITALS: BP 121/79
[2017-03-25] MEDS: Isosorbide MONOnitrate (24 HR) 60 MG TAB.ER.24H PO SCH (08:34)
[2017-03-25] MEDS: Metoprolol XL (24 HR) Succ 50 MG TAB.ER.24H PO SCH (08:35)
[2017-03-25] MEDS: Gabapentin 300 MG CAPSULE PO SCH (08:35)
--- NOTE | 2017-03-25 08:55 | Discharge Summary ---
Date of Encounter: 03/25/17 Time of Encounter: 08:45 - Discharge Diagnosis (1) Chest pain Priority: Primary Status: Resolved Qualifiers: Chest pain type: precordial pain Qualified Code(s): R07.2 - Precordial pain (2) SOB (shortness of breath) Priority: Secondary Status: Acute (3) HTN (hypertension) Priority: Secondary Status: Chronic Qualifiers: Hypertension type: essential hypertension Qualified Code(s): I10 - Essential (primary) hypertension - Discharge Medications Prescriptions: Isosorbide MONOnitrate (24 HR) [Imdur] 60 mg PO DAILY #30 tab.er.24h Metoprolol XL (24 HR) Succ [Toprol Xl] 50 mg PO DAILY #30 tab.er.24h Home Medications: Albuterol Sulfate [Albuterol Inhaler] 2 puff IH Q6H PRN 09/06/16 [History] Atorvastatin [Lipitor] 80 mg PO HS 09/06/16 [History] Buspirone HCl [Buspar] 15 mg PO BID 09/06/16 [History] Clopidogrel [Plavix] 75 mg PO DAILY 09/06/16 [History] FLUoxetine HCl [Prozac] 20 mg PO DAILY 09/06/16 [History] Fluticasone Propionate Nasal [Flonase] 50 mcg NS DAILY 09/06/16 [History] Losartan Potassium [Cozaar] 50 mg PO DAILY 09/06/16 [History] Ergocalciferol (VITAMIN D2) [Vitamin D2] 50,000 unit PO QWEEK #7 capsule [Rx] Albuterol Neb [AccuNeb] 0.63 mg IH Q6H PRN 10/07/16 [History] Fenofibrate Nanocrystallized [Tricor] 145 mg PO DAILY 10/07/16 [History] Nitroglycerin [Nitrostat] 0.4 mg PO Q5M PRN 10/07/16 [History] Dicyclomine [Bentyl] 20 mg PO QID PRN #30 capsule 11/13/16 [Rx] Gabapentin [Neurontin] 600 mg PO TID 11/13/16 [History] Mometasone/Formoterol [Dulera 100 Mcg/5 Mcg Inhaler] 13 gm IH DAILY 11/13/16 [ History] Lidocaine Patch [Lidoderm 5% patch] 1 each TP DAILY PRN #3 adh..patch 01/01/17 [ Rx] Aspirin [Lo-Dose Aspirin EC] 81 mg PO DAILY 02/20/17 [History] Methocarbamol [Robaxin-750] 750 mg PO DAILY 02/20/17 [History] HYDROcodone/Acet 5/325 mg [[place] 5-325 mg] 1 tab PO Q6H PRN #16 tab 02/24/17 [Rx ] Cetirizine HCl 10 mg PO DAILY PRN #0 03/25/17 [Rx] Isosorbide MONOnitrate (24 HR) [Imdur] 60 mg PO DAILY #30 tab.er.24h 03/25/17 [ Rx] Metoprolol XL (24 HR) Succ [Toprol Xl] 50 mg PO DAILY #30 tab.er.24h 03/25/17 [ Rx] Allergies/Adverse Reactions: 3 Allergy/AdvReac Type Severity Reaction Status Date / Time Penicillins AdvReac Hives Verified 01/01/17 14:50 propoxyphene AdvReac Vomiting Verified 01/01/17 14:50 [From Darvocet-N] Date of admission: 03/24/17 11:42 Primary care physician: Clarisse Cordero CNP - Patient Status Disposition: Home, Self-Care Condition: Fair Functional capacity at discharge: independent ambulation Overall status at discharge: patient is progressing back to baseline - Discharge Instructions Follow Up With: Clarisse Cordero CNP [Primary Care Provider] - 1 week - Diet and Activity Activity: resume usual activities as tolerated Diet: advance to your usual diet Hospital course: Ms. Cosby is a 46 year old female who came to emergency room stating she had onset of chest pressure and dyspnea earlier today. She describes the chest discomfort as one she has had numerous times since November 2016 when she was last hospitalized at [facility]. She states it seemed to radiate from her chest up into her head. She took 2 nitroglycerin pills at home with incomplete relief. She called the squad and was brought to emergency room. Chest CTA was done to further evaluate elevated d-dimer. There was no pulmonary embolism seen and she was admitted to [facility] floor for ongoing care needs. Initial orders were written by the emergency room physician. I saw her on March 24 and performed the history and physical. Repeat cardiac enzymes showed no evidence of myocardial damage. Isosorbide was increased to 60 mg daily and metoprolol was changed to Toprol-XL 50 mg daily. She was given a single dose of ibuprofen 400 mg daily. She had resolution of her chest pain by the morning of March 25. She did not complain of dyspnea and felt stable for discharge home. She will follow with her PCP Clarisse Cordero CNP within 1 week. - Time Spent with Patient Total time spent providing and/or coordinating discharge services: - Constitutional Vitals: Temp Pulse Resp BP Pulse Ox 98.4 F 98 20 121/79 96 03/25/17 06:44 03/25/17 06:44 03/25/17 06:44 03/25/17 06:44 03/25/17 06:44
[2017-03-25] MEDS ORDERED: (Mometasone/Formoterol [Dulera 100 Mcg/5 Mcg Inhaler]) IH SCH (09:00)
[2017-03-25] MEDS ORDERED: FLUoxetine 20 MG CAPSULE PO SCH (09:00)
[2017-03-25] MEDS ORDERED: Loratadine 10 MG TABLET PO SCH (09:00)
[2017-03-25] MEDS ORDERED: Methocarbamol 500 MG TABLET PO SCH (09:00)
[2017-03-25] MEDS ORDERED: Aspirin Enteric Coated 81 MG Tablet PO SCH (09:00)
[2017-03-25] MEDS ORDERED: Fenofibrate 54 MG TABLET PO SCH (09:00)
[2017-03-25] MEDS ORDERED: Fluticasone Propionate Nasal 50 MCG/SPRAY BOTTLE NS SCH (09:00)
[2017-03-25] MEDS ORDERED: Isosorbide MONOnitrate (24 HR) 30 MG TAB.ER.24H PO SCH (09:00)
--- NOTE | 2017-03-26 07:56 | Electrocardiograph Report ---
[address] [address] Test Date: 2017-03-24 Pat Name: Anne Cosby Department: [id number] Room: [facility] Gender: F Genetic Engineer: [id number] : 1970 Requested By: Tom Leal Order Number: [id number] Reading MD: Ricki Madison MD Measurements Intervals [place] Rate: 100 P: 55 [place]: 179 QRS: 1 QRSD: 90 T: 54 QT: 345 QTc: 402 Interpretive Statements SINUS TACHYCARDIA Poor R wave progression BASELINE ARTIFACT Electronically Signed On 03-26-2017 7:07:28 EST by Ricki Madison MD
== END 2017-03-25 10:45 | disposition home or self-care (01) ==
LOC: EMEROOPIK 09:19 → INPPIK 09:19
PROVIDERS: ADMIT Internal Medicine; ATTEND Internal Medicine